=== PATIENT | male | born 1975 | race African-American/Black ===

== ENCOUNTER 2024-01-20 14:14 | Emergency (ER) | payer OTHER, SELFPAY ==
[2024-01-20 14:18] VITALS: BP 132/91; PULSE 82; TEMP 37.1; O2SAT 97; BMI 35.5
--- NOTE | 2024-01-20 14:34 | PC.NURSE ---
pt c/o lump on left foot causing pain
--- NOTE | 2024-01-20 14:40 | XR_ITS ---
The [address] [address] Patient Name: LUBNA TATUM MRN: [id number] date: 1975 Sex: M Assigned Patient Location: ER Current Patient Location: ER Accession/Order Number: [id number] Exam Date: 01/20/2024 14:43 Report Date: 01/20/2024 15:07 At the request of: TORI NEW Procedure: XR foot LT min 3V PROCEDURE: XR foot LT min 3V COMPARISON: None. HISTORY: pain FINDINGS: BONES:No acute fracture or dislocation. 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 Degenerative changes and marginal osteophyte formation SOFT TISSUES:Negative. No visible soft tissue swelling. EFFUSION:None visible. OTHER: Negative. XR/XR foot LT min 3V IMPRESSION: Hallux valgus with first metatarsal-phalangeal joint arthritis Electronically authenticated by: KRISTY HUA Date: 01/20/2024 15:07
--- NOTE | 2024-01-20 14:52 | ED.GENADUL1 ---
HPI HPI - General Adult General Chief complaint: Extremity Problem, Nontraumatic Stated complaint: LUMP ON LEFT FOOT Time Seen by Provider: 01/20/24 14:16 Source: patient Mode of arrival: walk-in Limitations: no limitations History of Present Illness HPI narrative: Patient presents ED complaining of left foot pain. He has pain to the lateral aspect of the left foot. He said it has been going on a couple of weeks and he feels like there is a bump on the left side of his foot. He does have a history of a bunion on that foot but he said that is not bothering him at all. He said he is not sure if he walks on the edge of his foot because of the bunion or not, he said he really does not pay attention to that. No known trauma or puncture to the foot no known foreign body. No fevers. No history of gout. No ankle pain. No calf pain or swelling. Patient has no other complaints at this time Related Data Allergies Allergy/AdvReac Type Severity Reaction Status Date / Time No Known Drug Allergies Allergy Verified 01/20/24 14:21 Opioid HPI Opioid Management Most Recent Opioid Data: No Data to Display Review of Systems ROS Status of ROS 10 or more systems reviewed and unremarkable except as noted in history and below PFSH PFSH Social History Little interest or pleasure in doing things: not at all Feeling down, depressed, or hopeless: not at all Exam Narrative Exam Narrative: General: alert, no acute distress Cardiovascular: regular rate and rhythm, normal peripheral perfusion. Respiratory: Lungs CTA, respirations non labored. Extremities: Patient has a bunion on the left foot which is non tender. He has some tenderness to the lateral aspect of the left foot near the base of the fifth metatarsal with very mild erythema and swelling. Tenderness to palpation. Normal distal pulses and sensation. No calf pain Neurological: oriented x 4, LOC appropriate for age. Constitutional Vital Signs, click to edit/add: Last Vital Signs Temp 98.7 F 01/20/24 14:18 Pulse 82 01/20/24 14:18 Resp 20 01/20/24 14:18 BP 132/91 01/20/24 14:18 Pulse Ox 97 01/20/24 14:18 O2 Del Method Room Air 01/20/24 14:18 Course Vital Signs Vital signs: Vital Signs Temperature 98.7 F 01/20/24 14:18 Pulse Rate 82 01/20/24 14:18 Respiratory Rate 20 01/20/24 14:18 Blood Pressure 132/91 01/20/24 14:18 Pulse Oximetry 97 01/20/24 14:18 Oxygen Delivery Method Room Air 01/20/24 14:18 Temperature 98.7 F 01/20/24 14:18 Pulse Rate 82 01/20/24 14:18 Respiratory Rate 20 01/20/24 14:18 Blood Pressure 132/91 01/20/24 14:18 Pulse Oximetry 97 01/20/24 14:18 Oxygen Delivery Method Room Air 01/20/24 14:18 Medical Decision Making MDM Narrative Medical decision making narrative: Patient's x-ray shows a bunion. No acute abnormality at the base of the fifth metatarsal. Most likely he is Stress on that joint from the deformity from the bunion. 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 No evidence of infection or foreign body. No acute fracture. Rest the foot is much as possible, call podiatry and schedule follow-up appointment. Patient is comfortable care plan for home Differential Diagnosis Differential Diagnosis: Foreign body, fracture, sprain, strain osteoarthritis Imaging Data Chest x-ray: Radiologist's impression: ITS Impressions Foot X-Ray 01/20/24 14:40 IMPRESSION: Hallux valgus with first metatarsal-phalangeal joint arthritis Electronically authenticated by: KRISTY HUA Date: 01/20/2024 15:07 Discharge Plan Discharge Chief Complaint: Extremity Problem, Nontraumatic Clinical Impression: Bunion, Repetitive strain injury of left foot Patient Disposition: Home, Self-Care Time of Disposition Decision: 15:16 Condition: Good Mode of Transportation: Private Vehicle Print Language: Belgian Instructions: Jey (ED) Referrals: Physician,Non-Staff, [Primary Care Provider] - 1 week Jaylen Mccarthy DPM [Physician] - 1 week
== END 2024-01-20 15:41 | disposition home or self-care (01) ==
PROVIDERS: Emergency Provider Emergency Medicine
DX: M21.612 Bunion of left foot (principal); S96.912A Strain of unspecified muscle and tendon at ankle and foot level, left foot, initial encounter; X50.3XXA Overexertion from repetitive movements, initial encounter
CPT/HCPCS: 73630; 99283